=== PATIENT | female | born 1950 | race Two or more races ===

== ENCOUNTER 2020-10-17 16:15 | Emergency (ER) | payer OTHER ==
[~2020-10-17] VITALS: Ht 154.9 cm; Wt 71.7 kg
[2020-10-17] MEDS ORDERED: FOSAMAX70 MG (16:52)
[2020-10-17] MEDS ORDERED: ADULT LOW DOSE81 M1 (16:52)
[2020-10-17] MEDS ORDERED: TENORMIN50 M1 (16:53)
[2020-10-17] MEDS ORDERED: HYDROCHLOROTH12.5 MG (16:53)
[2020-10-17] MEDS ORDERED: DIOVAN160 M1 (16:53)
== END 2020-10-17 19:05 | disposition home or self-care (01) ==
LOC: ER 16:15
DX: S62.635A Displaced fracture of distal phalanx of left ring finger, initial encounter for closed fracture (principal); S61.225A Laceration with foreign body of left ring finger without damage to nail, initial encounter; W23.0XXA Caught, crushed, jammed, or pinched between moving objects, initial encounter; Y93.89 Activity, other specified; Y92.018 Other place in single-family (private) house as the place of occurrence of the external cause; Y99.8 Other external cause status

== ENCOUNTER 2022-11-10 15:48 | Inpatient (IN) | payer OTHER ==
[~2022-11-10] VITALS: Ht 154.9 cm; Wt 68.0 kg
[~2022-11-10 15:48] MED LIST: ADULT LOW DOSE81 M1; DIOVAN160 M1; FOSAMAX70 MG; HYDROCHLOROTH12.5 MG; TENORMIN50 M1
[2022-11-13] MEDS ORDERED: PREZCOBIX 8001 EACH (09:33)
[2022-11-13] MEDS ORDERED: DESCOVY 200-251 EACH (09:33)
[2022-11-13] MEDS ORDERED: TROMBONEX-D CA1 EACH (09:42)
[2022-11-13] MEDS ORDERED: LEVALBUTEROL TA15 GM (09:42)
[2022-11-13] MEDS ORDERED: SPIRIVA RESPIMAT4 G1 (09:42)
[2022-11-13] MEDS ORDERED: ZOVIRAX400 MG (09:42)
[2022-11-13] MEDS ORDERED: FAMOTIDINE40 MG (09:42)
[2022-11-13] MEDS ORDERED: ATORVASTATIN CA20 MG (09:42)
[2022-11-13] MEDS ORDERED: FLAXSEED OIL1000 MG (09:43)
[2022-11-13] MEDS ORDERED: METFORMIN HCL500 M4 (09:43)
[2022-11-13] MEDS ORDERED: LANSOPRAZOLE30 MG (09:43)
[2022-11-13] MEDS ORDERED: DOXAZOSIN MESYLA1 MG (09:43)
[2022-11-16] MEDS ORDERED: TOPROL XL50 M1 PO (10:47)
[2022-11-16] MEDS ORDERED: ATORVASTATIN CA20 MG PO (10:47)
[2022-11-16] MEDS ORDERED: DIOVAN160 M1 PO (10:48)
[2022-11-16] MEDS ORDERED: HYDROCHLOROTH12.5 MG PO (10:49)
[2022-11-16] MEDS ORDERED: PANTOPRAZOLE SO40 MG PO (10:49)
[2022-11-16] MEDS ORDERED: FOSAMAX70 MG PO (10:50)
[2022-11-16] MEDS ORDERED: METFORMIN HCL500 M4 PO (10:50)
[2022-11-16] MEDS ORDERED: LEVOFLOXACIN750 MG PO (10:51)
[2022-11-16] MEDS ORDERED: METRONIDAZOLE500 MG PO (10:53)
== END 2022-11-16 11:35 | disposition home or self-care (01) | DRG 378 ==
LOC: ER 15:48 → MEDJ 21:54
PROVIDERS: ADMIT Internal Medicine; ATTEND Internal Medicine
PROC: BW21ZZZ Computerized Tomography (CT Scan) of Abdomen and Pelvis (ICD-10-PCS; principal; 2022-11-10)
PROC: 02HV33Z Insertion of Infusion Device into Superior Vena Cava, Percutaneous Approach (ICD-10-PCS; 2022-11-14)
PROC: BW21YZZ Computerized Tomography (CT Scan) of Abdomen and Pelvis using Other Contrast (ICD-10-PCS; 2022-11-15)
DX: K57.21 Diverticulitis of large intestine with perforation and abscess with bleeding (principal); D62 Acute posthemorrhagic anemia; E87.1 Hypo-osmolality and hyponatremia; E86.0 Dehydration; I10 Essential (primary) hypertension; E11.9 Type 2 diabetes mellitus without complications; Z79.4 Long term (current) use of insulin; Z20.822 Contact with and (suspected) exposure to COVID-19